=== PATIENT | female | born 2000 | race Two or more races ===

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

== ENCOUNTER 2020-04-08 18:53 | Emergency (ER) | payer MEDICAID ==
[~2020-04-08] VITALS: Ht 144.8 cm; Wt 65.8 kg
[~2020-04-08 18:53] MED LIST changes: +BACITRACIN15 GM TOPIC; +GUAIFENESIN DM118 M1 ORAL; +TYLENOL EXTRA500 MG ORAL
--- NOTE | 2020-04-08 19:04 | NUR ---
ED Nurse Note: Patient walked in from home for stitch removal on face. Patient aao x 4 and ambulatory with steady gait. Patient placed in room, no c/o pain. No acute distress noted.
[2020-04-08 19:05] VITALS: BP 125/82
--- NOTE | 2020-04-08 19:28 | NUR ---
ED Nurse Note: ER PA at bedside
--- NOTE | 2020-04-08 19:35 | Emergency Room Report ---
History of Present Illness General Chief Complaint: Wound Recheck/Suture Removal Source: Patient Present Illness HPI 20 YO female presents to the ED c/o having sutures on her face x 6 days that need to be removed s/p wound closure. She denies bleeding, discharge, tenderness or pain. Patient denies any symptoms at this time. 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: No Patient History Past Medical History: see triage record Past Surgical History: none Pertinent Family History: none Now: No Reviewed Nursing Documentation: PMH: Agreed; PSxH: Agreed Nursing Documentation-PMH Past Medical History: No History, Except For Hx Seizures: Yes - 2018 Review of Systems All Other Systems: negative except mentioned in HPI Physical Exam Vital Signs Date Time Temp Pulse Resp B/P (MAP) Pulse Ox O2 Delivery O2 Flow Rate FiO2 04/08/20 18:55 98.2 76 17 122/80 (94) 98 Room Air Sp02 EP Interpretation: reviewed, normal General Appearance: no apparent distress, alert, GCS 15, non-toxic Head: normocephalic, atraumatic Eyes: bilateral eye normal inspection, bilateral eye PERRL ENT: hearing grossly normal, normal voice Neck: full range of motion Respiratory: chest non-tender, lungs clear, normal breath sounds, speaking full sentences Cardiovascular #1: regular rate, rhythm, no edema Musculoskeletal: normal range of motion, gait/station normal, non-tender Neurologic: alert, motor strength/tone normal, oriented x3, sensory intact, responsive, speech normal Psychiatric: judgement/insight normal Skin: wd healing/no infection noted - healed laceration of the nasal bridge. Medical Decision Making PA Attestation Dr. Hightower is my supervising Physician whom patient management has been discussed with. Diagnostic Impression: Primary Impression: Encounter for removal of sutures ER Course 20 YO female presents to the ED c/o having sutures on her face x 6 days that need to be removed s/p wound closure. She denies bleeding, discharge, tenderness or pain. Patient denies any symptoms at this time. Ddx considered but are not limited to laceration, tendon injury, cellulitis, dehiscence. Vital signs: are WNL, pt. is afebrile H&PE are most consistent with: healed laceration of the nasal bridge. ORDERS: none required at this time, the diagnosis is clinical ED INTERVENTIONS: - 5 Sutures removed. DISCHARGE: At this time pt. is stable for d/c to home. Will provide printed patient care instructions, and any necessary prescriptions. Care plan and follow up instructions have been discussed with the patient prior to discharge. Last Vital Signs Date Time Temp Pulse Resp B/P (MAP) Pulse Ox O2 Delivery O2 Flow Rate FiO2 04/08/20 19:05 98.2 75 16 125/82 99 Room Air Disposition: HOME, SELF-CARE Condition: Stable Scripts Emollient Combination No.46 (MEDERMA) 20 Gm Cream..g. 1 APPLIC TP QID, #20 GM 3 Refills Prov: Erica Henson 04/08/20 Patient Instructions: Wound Closure Removal Additional Instructions: Take medications as directed. Follow up with a Primary Care Provider in 3-5 days, even if your symptoms have resolved. Return sooner to ED if new symptoms occur, or current symptoms become worse. - Please note that this Emergency Department Report was dictated using [employer] engine mechanic technology software, occasionally this can lead to erroneous entry secondary to interpretation by the dictation equipment. Erica Henson Apr 08, 2020 19:35
[2020-04-08] MEDS ORDERED: MEDERMA20 GM TP (19:37)
--- NOTE | 2020-04-08 19:40 | NUR ---
ER DISCHARGE NOTE: Patient is cleared to be discharged per ERMD, pt is aox4, on room air, with stable vital signs. pt was given dc and prescription instructions, pt was able to verbalize understanding, pt id band removed. pt is able to ambulate with steady gait. pt took all belongings. pt stable upon discharge.
== END 2020-04-08 19:40 | disposition home or self-care (01) ==
LOC: EMR 19:27
DX: Z48.02 Encounter for removal of sutures (principal); G40.909 Epilepsy, unspecified, not intractable, without status epilepticus
CPT/HCPCS: 99282

== ENCOUNTER 2020-04-27 02:58 | Emergency (ER) | payer MEDICAID ==
[~2020-04-27] VITALS: Ht 162.6 cm; Wt 54.4 kg
[~2020-04-27 02:58] MED LIST changes: +MEDERMA20 GM TP
--- NOTE | 2020-04-27 03:10 | NUR ---
ED Nurse Note: Pt presents to ED s/p syncopal episode. pt reports that the last thing she remembers is that she was painting, then she woke up on the ground. pt states her sister reports pt was out for 40 minutes, she states this has happened to her at least 5 times in the past with the most recent episode being "about a week ago". pt denies taking anything for sz but reports previous history of convulsing. pt is currently c/o bialt eye, BARRIOS and neck px, she also has a skin tear to the R corner of her mouth. pt placed on shelter monitor, sz and safety precautions are in place
[2020-04-27 03:15] VITALS: BP 122/78
--- NOTE | 2020-04-27 03:33 | Emergency Room Report ---
History of Present Illness General Chief Complaint: Seizure Source: Patient Present Illness HPI Disclaimer: Please note that this report is being documented using [employer] technology. This can lead to erroneous entry secondary to incorrect interpretation by the dictating instrument. HPI: 20-year-old female presents from home after a possible seizure-like episode. Apparently she was painting and then was found convulsing on the ground. On arrival to ER she was alert and oriented. She denies any fevers nausea or vomiting. She apparently has had similar episodes in the past most recently approximately 3 weeks ago. She was seen here and had a head CT which was normal. She has never been on any anti-seizure medications. She has no other medical complaints at this time. PMH: Possible seizures PSH: Reviewed Social Hx: Denies smoking drinking or illicit drug use Allergies: Coded Allergies: No Known Allergies (Unverified , 12/06/17) COVID-19 Screening Contact w/high risk pt: No Recent Travel to affected area: No Experienced COVID-19 symptoms?: No COVID-19 Testing performed CERTIFIED MEDICAL CODING SPECIALIST: No Patient History Last Menstrual Period: t-7 Reviewed Nursing Documentation: PMH: Agreed; PSxH: Agreed Nursing Documentation-PMH Past Medical History: No History, Except For Hx Seizures: Yes - 2019 Review of Systems All Other Systems: negative except mentioned in HPI Physical Exam Vital Signs Date Time Temp Pulse Resp B/P (MAP) Pulse Ox O2 Delivery O2 Flow Rate FiO2 04/27/20 03:10 98.4 84 18 122/78 (93) 100 Room Air Sp02 EP Interpretation: reviewed, normal General Appearance: well appearing, no apparent distress Head: normocephalic, atraumatic Eyes: bilateral eye PERRL, bilateral eye EOMI ENT: hearing grossly normal, moist mucus membranes Neck: full range of motion, supple Respiratory: lungs clear, normal breath sounds, no rhonchi, no respiratory distress, no retraction, no wheezing Cardiovascular #1: normal peripheral pulses, regular rate, rhythm, no murmur Gastrointestinal: non tender, soft, non-distended, no guarding Neurologic: alert, motor strength/tone normal, furniture finisher III-XII nml as tested, oriented x3, sensory intact, cerebellar normal, normal gait, no focal defects Skin: normal color, warm/dry Medical Decision Making Diagnostic Impression: Primary Impression: Seizure-like activity ER Course Differential diagnosis included but not limited to recurrent seizure, pseudoseizure, syncope to name a few. EKG ordered and showed no ischemic changes or evidence of arrhythmia. Patient has had multiple similar episodes in the past. As this is her second episode in the past month. She has had a CT scan of the brain which was normal earlier this month. I did discuss the possibility of starting a seizure medication with the patient. She did wish to go on seizure medications. Patient started on Keppra. Laboratory studies showed no significant abnormalities. She does have outpatient follow-up and I recommended outpatient follow-up for referral to neurology as well. Patient be discharged home with instructions to continue oral medications, follow-up PMD, follow-up neurology. Given return precautions. Laboratory Tests Test 04/27/20 03:20 04/27/20 03:31 White Blood Count 11.9 K/UL (4.8-10.8) H Red Blood Count 4.81 M/UL (4.20-5.40) Hemoglobin 10.7 G/DL (12.0-16.0) L Hematocrit 34.7 % (37.0-47.0) L Mean Corpuscular Volume 72 FL (80-99) L Mean Corpuscular Hemoglobin 22.3 PG (27.0-31.0) L Mean Corpuscular Hemoglobin Concent 30.9 G/DL (32.0-36.0) L Red Cell Distribution Width 14.6 % (11.6-14.8) Platelet Count 316 K/UL (150-450) Mean Platelet Volume 9.9 FL (6.5-10.1) Neutrophils (%) (Auto) 70.0 % (45.0-75.0) Lymphocytes (%) (Auto) 22.5 % (20.0-45.0) Monocytes (%) (Auto) 5.6 % (1.0-10.0) Eosinophils (%) (Auto) 1.1 % (0.0-3.0) Basophils (%) (Auto) 0.8 % (0.0-2.0) Urine Color Pale yellow Urine Appearance Clear Urine pH 5 (4.5-8.0) Urine Specific [place] 1.020 (1.005-1.035) Urine Protein 1+ (NEGATIVE) H Urine Glucose (UA) Negative (NEGATIVE) Urine Ketones Negative (NEGATIVE) Urine Blood 3+ (NEGATIVE) H Urine Nitrite Negative (NEGATIVE) Urine Bilirubin Negative (NEGATIVE) Urine Urobilinogen Normal MG/DL (0.0-1.0) Urine Leukocyte Esterase Negative (NEGATIVE) Urine RBC 2-4 /HPF (0 - 2) H Urine WBC 0-2 /HPF (0 - 2) Urine Squamous Epithelial Cells Few /LPF (NONE/OCC) Urine Bacteria None /HPF (NONE) Urine HCG, Qualitative Negative (NEGATIVE) Sodium Level 137 MMOL/L (136-145) Potassium Level 3.9 MMOL/L (3.5-5.1) Chloride Level 104 MMOL/L (98-107) Carbon Dioxide Level 28 MMOL/L (21-32) Anion Gap 6 mmol/L (5-15) Blood Urea Nitrogen 7 mg/dL (7-18) Creatinine 0.9 MG/DL (0.55-1.30) Estimated Glomerular Filtration Rate > 60 mL/min (>60) Glucose Level 106 MG/DL (74-106) Calcium Level 9.0 MG/DL (8.5-10.1) Total Bilirubin 0.2 MG/DL (0.2-1.0) Aspartate Amino Transferase (AST) 16 U/L (15-37) Alanine Aminotransferase (ALT) 14 U/L (12-78) Alkaline Phosphatase 90 U/L (46-116) Total Protein 8.3 G/DL (6.4-8.2) H Albumin 3.9 G/DL (3.4-5.0) Globulin 4.4 g/dL Albumin/Globulin Ratio 0.9 (1.0-2.7) L Urine Opiates Screen Negative (NEGATIVE) Urine Barbiturates Screen Negative (NEGATIVE) Phencyclidine (PCP) Screen Negative (NEGATIVE) Urine Amphetamines Screen Negative (NEGATIVE) Urine Benzodiazepines Screen Negative (NEGATIVE) Urine Cocaine Screen Negative (NEGATIVE) Urine Marijuana (THC) Screen Negative (NEGATIVE) POC Whole Blood Glucose 85 MG/DL (74-106) Last Vital Signs Date Time Temp Pulse Resp B/P (MAP) Pulse Ox O2 Delivery O2 Flow Rate FiO2 04/27/20 03:15 84 18 Room Air 04/27/20 03:15 122/78 100 04/27/20 03:10 98.4 Status: improved Disposition: HOME, SELF-CARE Condition: Stable Scripts Levetiracetam (KEPPRA) 500 Mg Tablet 500 MG ORAL EVERY 12 HOURS, #60 TAB 0 Refills Prov: Morales Marcus M.D. 04/27/20 Referrals: NON PHYSICIAN (PCP) Morales Marcus M.D. Apr 27, 2020 03:32
[2020-04-27 03:39] LABS: APPEARANCE,URINE CLEAR; BILIRUBIN, URINE NEGATIVE (NEGATIVE); COLOR,URINE PALE YELLOW; GLUCOSE, URINE (UA) NEGATIVE (NEGATIVE); KETONES,URINE NEGATIVE (NEGATIVE); LEUKOCYTE ESTERASE ,URINE NEGATIVE (NEGATIVE); NITRITE,URINE NEGATIVE (NEGATIVE); PH,URINE 5 (4.5-8.0); PROTEIN,URINE 1+ (NEGATIVE); UROBILINOGEN,URINE NORMAL MG/DL (0.0-1.0)
[2020-04-27 03:45] LABS: BASOPHILS % (AUTO) 0.8 % (0.0-2.0); EOSINOPHILS % (AUTO) 1.1 % (0.0-3.0); HEMATOCRIT 34.7 % (37.0-47.0); HEMOGLOBIN 10.7 G/DL (12.0-16.0); LYMPHOCYTES % (AUTO) 22.5 % (20.0-45.0); MEAN CORPUSCULAR VOLUME 72 FL (80-99); MONOCYTES % (AUTO) 5.6 % (1.0-10.0); PLATELET COUNT 316 K/UL (150-450); RED BLOOD COUNT 4.81 M/UL (4.20-5.40); RED CELL DISTRIBUTION WIDTH 14.6 % (11.6-14.8); WHITE BLOOD COUNT 11.9 K/UL (4.8-10.8)
[2020-04-27] MEDS ORDERED: Ketorolac 30mg Inj IV ONE (03:45)
[2020-04-27 03:49] LABS: ANION GAP 6 mmol/L (5-15); BLOOD UREA NITROGEN 7 mg/dL (7-18); CARBON DIOXIDE 28 MMOL/L (21-32); CHLORIDE 104 MMOL/L (98-107); CREATININE 0.9 MG/DL (0.55-1.30); POTASSIUM 3.9 MMOL/L (3.5-5.1); SODIUM 137 MMOL/L (136-145)
[2020-04-27 03:54] LABS: ALANINE AMINOTRANSFERASE 14 U/L (12-78); ALBUMIN 3.9 G/DL (3.4-5.0); ALBUMIN/GLOBULIN RATIO 0.9 (1.0-2.7); ALKALINE PHOSPHATASE 90 U/L (46-116); ASPARTATE AMINO TRANSFERASE 16 U/L (15-37); BILIRUBIN,TOTAL 0.2 MG/DL (0.2-1.0)
[2020-04-27 04:28] VITALS: BP 125/79
[2020-04-27] MEDS ORDERED: KEPPRA500 M4 ORAL (04:45)
[2020-04-27] MEDS ORDERED: levETIRAcetam 500mg/NS100ml 100 ML IVPB ONE (04:45)
--- NOTE | 2020-04-27 04:53 | NUR ---
ED Nurse Note: pt remains in no acute distress with stable vital signs on security monitor. pt has keppra running per ERMD orders. no sz-like activity has been witnessed during pt's time in ED. all sz and safety precautions are in place. will continue to monitor
[2020-04-27 05:07] VITALS: BP 125/79
--- NOTE | 2020-04-27 05:07 | NUR ---
ER DISCHARGE NOTE: Patient is cleared to be discharged per ERMD, pt is aox4, on room air, with stable vital signs. pt was given dc and prescription instructions, pt was able to verbalize understanding, pt id band and iv site removed without complications. pt is able to ambulate with steady gait. pt took all belongings.
== END 2020-04-27 05:07 | disposition home or self-care (01) ==
LOC: EMR 03:10
DX: R56.9 Unspecified convulsions (principal)
CPT/HCPCS: 36415; 80053; 80307; 81003; 81025; 82962; 85025; 93005; 96374; 96375; J1885; J1953; Z7502; 99284

== ENCOUNTER 2020-06-28 13:56 | Emergency (ER) | payer MEDICAID ==
[~2020-06-28] VITALS: Ht 144.8 cm; Wt 68.0 kg
[~2020-06-28 13:56] MED LIST changes: +KEPPRA500 M4 ORAL
[2020-06-28 13:58] VITALS: BP 127/81
[2020-06-28] MEDS ORDERED: Ketorolac 60mg Inj IM ONE (14:15)
--- NOTE | 2020-06-28 14:24 | NUR ---
ED Nurse Note: Patient from home and walked in due to left shouldfer pain acquired after falling off from the stairs while playing with her dog. Denies head injury. Patient states she is unable to move her left arm. No apparent deformity or dislocation. AAO x4 and ambulatory.
--- NOTE | 2020-06-28 14:29 | NUR ---
ED Nurse Note: surgical tech Jin at the bed side for xray.
--- NOTE | 2020-06-28 15:17 | Emergency Room Report ---
History of Present Illness General Chief Complaint: Upper Extremity Injury Source: Patient Present Illness HPI The patient states that she was walking her dog and none her dog pulled on the leash and then she fell and hurt her left shoulder. She has pain throughout the left shoulder and with any range of motion of the left shoulder. She has has pain along the clavicle. She denies head injury. She denies neck pain. She has no other complaints. Allergies: Coded Allergies: No Known Allergies (Unverified , 12/06/17) COVID-19 Screening Contact w/high risk pt: No Recent Travel to affected area: No Experienced COVID-19 symptoms?: No COVID-19 Testing performed BILLET INSPECTOR: No Patient History Past Medical History: see triage record, seizures Social History: Denies: smoking, alcohol use, drug use Last Menstrual Period: 05/14/2020 Reviewed Nursing Documentation: PMH: Agreed; PSxH: Agreed Nursing Documentation-PM Past Medical History: No Stated History Hx Seizures: Yes - 2018 Review of Systems All Other Systems: negative except mentioned in HPI Physical Exam Vital Signs Date Time Temp Pulse Resp B/P (MAP) Pulse Ox O2 Delivery O2 Flow Rate FiO2 06/28/20 13:58 97.3 81 15 127/81 (96) 99 Room Air Sp02 EP Interpretation: reviewed, normal General Appearance: no apparent distress, alert, GCS 15, non-toxic Head: normocephalic, atraumatic Eyes: bilateral eye normal inspection ENT: hearing grossly normal, normal pharynx, no angioedema, normal voice Neck: normal inspection, full range of motion, supple/symm/no masses Respiratory: no respiratory distress, no retraction, no accessory muscle use, speaking full sentences Rectal: deferred Musculoskeletal: back normal, normal range of motion, gait/station normal, other - TTP along the L. trapezius muscle, L. clavicle and anterior L. shoulder. +pain with ROM of the L. shoulder. No obvious deformity palpated. Neurologic: alert, motor strength/tone normal, oriented x3, sensory intact, responsive, speech normal Psychiatric: judgement/insight normal, memory normal, mood/affect normal, no suicidal/homicidal ideation Skin: no rash, normal color Medical Decision Making Diagnostic Impression: Primary Impression: Contusion of shoulder Additional Impression: Sprain of shoulder, left ER Course This patient has a clinical presentation consistent with shoulder sprain and shoulder contusion. Left shoulder x-ray and left clavicle x-ray are negative for fracture. The patient has pain with range of motion and has tenderness to palpation along the trapezius muscle, clavicle and anterior shoulder. There is no evidence of compartment syndrome. There is no neurologic deficit. The patient was given a sling for comfort. She is instructed to follow-up with orthopedic surgery if her symptoms persist. The patient was instructed on supportive home measures. No emergency medical condition was identified. The patient was given return precautions and followup instructions. Other X-Ray Diagnostic Results Other X-Ray Diagnostic Results : X-Ray ordered: L. shoulder xray, L. clavicle xray # of Views/Limited Vs Complete: Complete Indication: Pain EP Interpretation: Yes Interpretation: no dislocation, no soft tissue swelling, no fractures Impression: No acute disease Electronically Signed by: Barb Chi DO Last Vital Signs Date Time Temp Pulse Resp B/P (MAP) Pulse Ox O2 Delivery O2 Flow Rate FiO2 06/28/20 13:58 97.3 81 15 127/81 99 Room Air Status: improved Disposition: HOME, SELF-CARE Condition: Improved Barb Chi DO Jun 28, 2020 15:16
--- NOTE | 2020-06-28 16:26 | Diagnostic Imaging Report ---
INDICATION: Shoulder pain TECHNIQUE: XRAY Shoulder Compl L Multiple views of the left shoulder were obtained COMPARISON: None FINDINGS: There is no acute fracture or dislocation. Joint spaces are maintained. No acute soft tissue abnormality. Visualized left lung is clear. IMPRESSION: No acute fracture or dislocation.
[2020-06-28] MEDS ORDERED: IBUPROFEN800 MG ORAL (16:59)
--- NOTE | 2020-06-28 17:00 | Diagnostic Imaging Report ---
INDICATION: Clavicular pain TECHNIQUE: XRAY Clavical Complete 2v L Multiple views of the left clavicle were obtained COMPARISON: None FINDINGS: There is no acute fracture or dislocation. Acromioclavicular joint and coracoclavicular interval are maintained. Glenohumeral joint is maintained. Visualized lung apices are clear. IMPRESSION: No acute fracture or dislocation.
[2020-06-28] MEDS ORDERED: CYCLOBENZAPRINE10 MG ORAL (17:07)
[2020-06-28 17:15] VITALS: BP 133/70
--- NOTE | 2020-06-28 17:15 | NUR ---
ER DISCHARGE NOTE: Patient is cleared to be discharged per ERMD, pt is aox4, on room air, with stable vital signs. pt was given dc and prescription instructions, pt was able to verbalize understanding, pt id band removed. pt is able to ambulate with steady gait. pt took all belongings.
== END 2020-06-28 17:40 | disposition home or self-care (01) ==
LOC: EMR 14:25
DX: S43.402A Unspecified sprain of left shoulder joint, initial encounter (principal); S40.012A Contusion of left shoulder, initial encounter; Y93.K1 Activity, walking an animal; Y92.9 Unspecified place or not applicable; G40.909 Epilepsy, unspecified, not intractable, without status epilepticus
CPT/HCPCS: 73000; 73030; 96372; Z7502; 99284